=== PATIENT | male | born 1975 | race Caucasian/White ===

== ENCOUNTER → 2016-07-21 | Outpatient (CLI) | payer OTHER, BC ==
[~2016-07-21] VITALS: Ht 190.5 cm; Wt 155.1 kg
[~2016-07-21] MED LIST: DEPAKOTE ER500 MG PO; EXCEDRIN CAPLE1 EACH PO; MAGOX 400400 MG PO; METHOCARBAMOL500 M2 PO; NABUMETONE 750750 M1 PO; SUMATRIPTAN SUC50 MG PO
--- NOTE | ~2016-07-21 | HPC ---
[facility] [place] [address] PAIN MANAGEMENT CONSULTATION Name: KIYA SAHA Room #: REG [facility] Sarina.#: [id number] Admission: 07/21/16 Attend Phys: Gustavo Sierra DO Discharge: Date of : 77 Report #: [id number] THIS REPORT FOR: //name// CC: CATHY Sierra DATE OF SERVICE: 07/21/2016 The patient is a very pleasant 41-year-old gentleman last seen in consultation 06/30/2016, diagnosed with symptomatic SI joint dysfunction, lumbosacral spondylosis, history of traumatic brain injury. He was given bilateral SI joint injections at last visit. Returns to pain clinic today noting significant improvement of baseline pain. States he is now able to bend forward and touch his toes, put his shoes on. Still, however, has some pain across the low back. The pain still is in the SI distribution, though Larry test is significantly improved, is only mildly positive. The patient rates subjective pain score 3 on a 0-10 visual analog scale. Again, pain has been present since 2003. PHYSICAL EXAMINATION: Shows a 41-year-old gentleman, BMI is 42.7 kilograms per meter squared. Vital signs are stable as noted in the EMR. As noted, tender over the SI joints with moderately positive Larry test bilaterally. The patient is doing physical activity including core strengthening exercises. RECOMMENDATION: Repeat Bilateral SI joint injection under fluoroscopy today. Follow up on a simply as needed basis. ASSESSMENT: Symptomatic sacroiliac joint dysfunction, lumbosacral spondylosis. PROCEDURE NOTE: Bilateral SI joint injections under fluoroscopy. PROCEDURE NOTE: After written and informed consent was obtained including risk of infection, nerve trauma, increased pain and weakness, the patient wishes to proceed. The patient was taken to the fluoroscopy suite, placed in the prone position. The sacroiliac joint was visualized using the C-arm, turned in an oblique fashion to align the joint. The skin overlying the area was cleansed with ChloraPrep. Skin wheal with Xylocaine was raised. A 22 gauge spinal needle was inserted into the inferior aspect of the joint. A low volume extension tubing was then attached to the needle after the stylet was removed. Negative aspiration was accomplished. A 1 mL of Omnipaque was injected which showed spread within the SI joint. 40 mg triamcinolone plus 2 mL of 0.5% preservative-free bupivacaine was injected into the joint. Needle was removed. Attention was then turned to the contralateral joint which was treated in an identical fashion. After both needles were removed the prep was washed off. Two Band-Aids were applied over the puncture sites. [place] [address] PAIN MANAGEMENT CONSULTATION Name: KIYA SAHA Room #: REG SADIE Whalen#: [id number] Admission: 07/21/16 Attend Phys: Gustavo Sierra DO Discharge: Date of : 77 Report #: [id number] ambulate to the recovery room, monitored for an appropriate period of time, discharged in good and stable condition. <ELECTRONICALLY SIGNED> By: Gustavo Sierra DO 07/21/16 1138 [id number] Gustavo Sierra DO /nt
[2016-07-21 08:20] VITALS: BP 136/86
== END ==
LOC: PAIN 06:44
DX: M53.3 Sacrococcygeal disorders, not elsewhere classified (principal); M47.817 Spondylosis without myelopathy or radiculopathy, lumbosacral region; E66.01 Morbid (severe) obesity due to excess calories; Z68.41 Body mass index [BMI] 40.0-44.9, adult; Z87.820 Personal history of traumatic brain injury

== ENCOUNTER → 2016-10-13 | Outpatient (CLI) | payer OTHER ==
[~2016-10-13] VITALS: Ht 190.5 cm; Wt 158.8 kg
--- NOTE | ~2016-10-13 | HPC ---
[facility] [place] [address] PAIN MANAGEMENT CONSULTATION Name: KIYA SAHA [id number] Admission: 10/13/16 Attend Phys: Gustavo Sierra DO Discharge: Date of : 77 Report #: [id number] THIS REPORT FOR: //name// CC: CATHY Sierra The patient is a very pleasant 41-year-old gentleman being treated for lumbosacral spondylosis, sacroiliac joint dysfunction, comorbidity includes traumatic brain injury. The patient was prior seen on 06/30/2016 and again on 07/21/2016. Given bilateral SI joint injections with significant improvement of baseline pain. The patient notes the pain was improved some 50%, albeit relatively short for a week or more with the injection. Notes pain is beginning to recur primarily low back, constant tenderness. He rates 7 on a 0-10 visual analog scale, seems to be exacerbated with pretty much any activity, sitting and bending. Denies radicular symptoms. PHYSICAL EXAMINATION: Shows morbidly obese 41-year-old gentleman, BMI is 43.8 kilograms per meter squared. He is actually fairly muscular gentleman, but does have some exogenous obesity. Blood pressure is 163/81, pulse is 83, respirations are 16. Alert and oriented to person, place and time, judged to be a reasonable historian. Rises from chair using armrest. Diffuse tenderness in the SI joints. Positive Larry test and Gaenslen's test bilaterally. Distraction test anterior superior iliac spine does exacerbate some pain actually going into the left groin. 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 His prior inguinal herniorrhaphy was on the contralateral, right side. Straight leg raise is negative. Gait is tandem. Lower extremity strength is preserved. The patient tells me today that he has continued with physical therapy, core strengthening exercises, but again pain has recurred. He also tells me today that he is relocating to his for his job. I have spoken to him at length about SI percutaneous fusion. I think he would be an excellent candidate. Again, he has failed conservative therapy including SI joint injections and physical therapy. Given that he is moving presently, he is requesting that we repeat the SI joint injection to get some transient relief. I did strongly recommend that he follow up and [facility] to [facility], who can consider percutaneous fusion of the SI joint. ASSESSMENT: Lumbosacral spondylosis, sacroiliac joint dysfunction by history, traumatic brain injury by history. RECOMMENDATION: Bilateral SI joint injection under fluoroscopy today. Follow up simply as needed. We will be happy to send the medical records as requested. PROCEDURE NOTE: Bilateral SI joint injection under fluoroscopy. PROCEDURE NOTE: After written and informed consent was obtained including risk [address] [address] PAIN MANAGEMENT CONSULTATION Name: MARIA AKIYA J Room #: REG Narendra Whalen#: [id number] Admission: 10/13/16 Attend Phys: Gustavo Sierra DO Discharge: Date of : 77 Report #: [id number] of infection, nerve trauma, increased pain and weakness, the patient wishes to proceed. The patient was taken to the fluoroscopy suite, placed in the prone position. The sacroiliac joint was visualized using the C-arm, turned in an oblique fashion to align the joint. The skin overlying the area was cleansed with ChloraPrep. Skin wheal with Xylocaine was raised. A 22 gauge spinal needle was inserted into the inferior aspect of the joint. A low volume extension tubing was then attached to the needle after the stylet was removed. Negative aspiration was accomplished. A 1 mL of Omnipaque was injected which showed spread within the SI joint. 40 mg triamcinolone plus 2 mL of 0.5% preservative-free bupivacaine was injected into the joint. Needle was removed. Attention was then turned to the contralateral joint which was treated in an identical fashion. After both needles were removed the prep was washed off. Two Band-Aids were applied over the puncture sites. The patient was allowed to ambulate to the recovery room, monitored for an appropriate period of time, discharged in good and stable condition. By: [id number] Gustavo Sierra DO /nt
[2016-10-13 10:06] VITALS: BP 163/81
== END ==
LOC: PAIN 06:46
DX: M53.3 Sacrococcygeal disorders, not elsewhere classified (principal); M47.817 Spondylosis without myelopathy or radiculopathy, lumbosacral region; E66.01 Morbid (severe) obesity due to excess calories; Z68.41 Body mass index [BMI] 40.0-44.9, adult; Z87.820 Personal history of traumatic brain injury